=== PATIENT | male | born 1945 | race Caucasian/White ===

== ENCOUNTER 2017-10-15 07:25 | Observation (INO) | payer BC ==
[~2017-10-15] VITALS: Ht 182.9 cm; Wt 99.8 kg
[2017-10-15] VITALS (9 sets, daily range): BP systolic 113–159; BP diastolic 68–80
--- NOTE | ~2017-10-15 | H ---
[address] [address] HISTORY AND PHYSICAL Name: JOSSY DAVILA Room: [address] Lori Blue#: [id number] Admission: 10/15/17 Attend Phys: Wilberto Skinner MD Discharge: 10/16/17 Date of : 47 Report #: [id number] THIS REPORT FOR: //name// Please refer to the History and Physical performed in the physician's office. By: 0701Medical Records Staff XUAN /RIC
[2017-10-15 08:07] LABS: HEMATOCRIT 43.5 % (42.0-52.0); HEMOGLOBIN 14.7 gm/dL (14.0-18.0); MCH 30.9 pg (26.0-34.0); MCHC 33.8 g/dL (28.0-37.0); MCV 91.5 fL (80.0-100.0); MPV 9.6 fl. (7.2-11.1); RBC 4.76 mil/uL (4.50-6.00); RDW-CV 13.5 % (10.5-14.5); WBC 6.6 thou/uL (4.0-11.0)
[2017-10-15 08:16] LABS: ANION GAP 6 mmol/L (7-16); BUN 20 mg/dL (7-18); CALCIUM 8.8 mg/dL (8.5-10.1); CHLORIDE 96 mmol/L (98-107); CO2 27 mmol/L (21-32); CREATININE 1.4 mg/dL (0.6-1.3); GLUCOSE 95 mg/dL (70-99); POTASSIUM 3.8 mmol/L (3.5-5.1); SODIUM 129 mmol/L (136-145)
[2017-10-15 08:17] LABS: APTT 26.8 Seconds (25.0-31.3)
[2017-10-15 08:20] LABS: ALBUMIN 3.8 g/dL (3.4-5.0); ALKALINE PHOSPHATASE 76 U/L (46-116); CHOLESTEROL 223 mg/dL (<200); HDL CHOLESTEROL 54 mg/dL (>40); LDL CHOLESTEROL 146 mg/dL (<100); SGOT 24 U/L (15-37); SGPT 27 U/L (30-65); TC:HDL 4.1 Ratio (Not establshd); TOTAL PROTEIN 7.1 g/dL (6.4-8.2); TRIGLYCERIDE 118 mg/dL (<150); VLDL 24 mg/dL (<40)
[2017-10-15 08:21] LABS: SERUM ASSESSMENT Clear
[2017-10-15] MEDS ORDERED: HYDROCHLOROTHIA25 M2 PO (08:36)
[2017-10-15] MEDS ORDERED: LISINOPRIL10 MG PO (08:36)
[2017-10-15] MEDS ORDERED: ALLOPURINOL 10100 M1 PO (08:37)
[2017-10-15] MEDS ORDERED: ZOCOR20 MG PO (08:37)
[2017-10-15] MEDS ORDERED: CARDURA4 MG PO (08:37)
[2017-10-15] MEDS ORDERED: ASPIRIN81 M2 PO (08:38)
[2017-10-15] MEDS ORDERED: NEXIUM40 MG PO (08:38)
--- NOTE | 2017-10-15 16:04 | NUR ---
PATIENT ARRIVED FROM PACU PER BED THIS AFTERNOON. PATIENT IS ALERT AND ORIENTED X 4. HE DENIES CHEST PAIN AND SOA. CATH SITE HAS DRIED BLOOD UNDER THE PRESSURE DEVICE. SEE FLOW SHEET FOR ASSESSMENT. PATIENT ORIENTED TO ROOM AND PROCEDURES. PLACED ON TELE MONITOR. ADMISSION ASSESSMENT PERFORMED. IV FLUIDS RESTARTED. PATIENT GIVEN CALL LIGHT AND INSTRUCTED ON FALL PRECAUTIONS.
--- NOTE | 2017-10-15 16:30 | EKG ---
[place] [address] ELECTROCARDIOGRAM REPORT Name: JOSSY DAVILA Room: [address] ADM IN M.R.#: [id number] Admission: 10/15/17 Attend Phys: Wilberto Skinner MD Discharge: Date of : 47 Report #: [id number] THIS REPORT FOR: //name// [facility] Test Date: 2017-10-15 Test Time: 11:54:44 Pat Name: JOSSY DAVILA Department: Room: 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: : 1945 Requested By: Tomas Conner Order Number: [id number] Reading MD: Wilberto Skinner Measurements Intervals [place] Rate: 37 P: MS: QRS: -40 QRSD: 128 T: -2 QT: 512 QTc: 402 Interpretive Statements Junctional rhythm Nonspecific IVCD with LAD Borderline T abnormalities, inferior leads Baseline wander in lead(s) V5 No previous ECG available for comparison Electronically Signed On 10-15-2017 16:30:25 CDT by Wilberto Skinner [email or web address] <ELECTRONICALLY SIGNED> By: Wilberto Skinner MD, FAC 10/15/17 1630 1154 1154 Wilberto Skinner MD, [facility] /EPI
--- NOTE | 2017-10-15 16:30 | EKG ---
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1945 Requested By: Wilberto Skinner Order Number: [id number] Reading MD: Wilberto Skinner Measurements Intervals [place] Rate: 41 P: 264 [place]: 126 QRS: -31 QRSD: 126 T: 3 QT: 485 QTc: 401 Interpretive Statements Ectopic atrial bradycardia Nonspecific intraventricular conduction delay No previous ECG available for comparison Electronically Signed On 10-15-2017 16:30:05 CDT by Wilberto Skinner [email or web address] <ELECTRONICALLY SIGNED> By: Wilberto Skinner MD, [facility] 10/15/17 1630 D: [id number] Wilberto Skinner MD, FAC /EPI
[2017-10-16] VITALS: BP 132/62
--- NOTE | 2017-10-16 01:20 | NUR ---
PATIENT POST CATH YESTERDAY WITH RT WRIST CATH SITE WITH SOME SWELLING WHICH WAS PRESENT AT SHIFT CHANGE. DENIES COMPLAINTS OF PAIN OR DISCOMFORT. CONT. IVF AT 125 HOUR WITHOUT DIFFICULTIES. WILL CONT. TO MONITOR. SB ON MONITOR. WAS TOLD THIS IS BASELINE IN REPORT.
[2017-10-16 04:00] VITALS: BP 141/66
[2017-10-16 05:25] LABS: HEMOGLOBIN 13.7 gm/dL (14.0-18.0); MCH 31.1 pg (26.0-34.0); MCHC 34.2 g/dL (28.0-37.0); MCV 90.8 fL (80.0-100.0); RBC 4.4 mil/uL (4.50-6.00); RDW-CV 13.4 % (10.5-14.5); WBC 7.7 thou/uL (4.0-11.0)
[2017-10-16 05:53] LABS: ALBUMIN 3.3 g/dL (3.4-5.0); ALKALINE PHOSPHATASE 71 U/L (46-116); ANION GAP 8 mmol/L (7-16); BUN 19 mg/dL (7-18); CALCIUM 8.2 mg/dL (8.5-10.1); CHLORIDE 106 mmol/L (98-107); CO2 27 mmol/L (21-32); CREATININE 1.4 mg/dL (0.6-1.3); GLUCOSE 81 mg/dL (70-99); POTASSIUM 4.6 mmol/L (3.5-5.1); SGOT 23 U/L (15-37); SGPT 24 U/L (30-65); TOTAL BILIRUBIN 1.3 mg/dL (<0.1-1.0); TOTAL PROTEIN 5.8 g/dL (6.4-8.2); TROPONIN-I LEVEL <0.06 ng/mL (<0.06)
[2017-10-16 05:55] LABS: SODIUM 141 mmol/L (136-145)
--- NOTE | 2017-10-16 06:52 | NUR ---
PATIENT HAS NS TO RUN AT [facility], PATIENT REQUESTED TO BE OFF THE FLUIDS IT WAS RESTRICTING HIS BRP.
[2017-10-16 08:00] VITALS: BP 138/69
[2017-10-16 10:12] VITALS: BP 141/74
[2017-10-16] MEDS ORDERED: BRILINTA90 MG PO (10:16)
[2017-10-16] MEDS ORDERED: LIPITOR40 MG PO (10:19)
[2017-10-16] MEDS ORDERED: NITROGLYCERIN0.4 MG SUBLING (10:20)
[2017-10-16 10:21] VITALS: BP 141/74
--- NOTE | 2017-10-16 11:04 | NUR ---
ASSUMED CARE OF PT THIS AM ASSESSED AND DOCUMENTED. SEE CHART. PT D/C'D TO HOME. EDUCATION GIVEN RE FOLLOW-UPS, MEDICATION, AND DRS ORDERS. SCRIPTS GIVEN. IV AND CARDIAC MONITER D/C'D. ALL BELONGINGS PACKED UP AND LEFT WITH PT ACCOMPANIED BY STAFF AND PTS BROTHER.
--- NOTE | 2017-10-16 15:09 | EKG ---
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1945 Requested By: Tomas Conner Order Number: [id number] Cinthia MD: Tomas Conner Measurements Intervals [place] Rate: 49 P: 40 [place]: 165 QRS: -55 QRSD: 125 T: 14 QT: 451 QTc: 408 Interpretive Statements Sinus bradycardia Nonspecific IVCD with LAD Compared to ECG 10/15/2017 11:54:44 Junctional rhythm no longer present T-wave abnormality no longer present Electronically Signed On 10-16-2017 15:09:10 CDT by Tomas Conner [email or web address] <ELECTRONICALLY SIGNED> By: Tomas Conner MD, [facility] 10/16/17 1509 0832 0832 Tomas Conner MD, [facility] /EPI
--- NOTE | 2017-10-16 16:11 | CARD ---
[address] [address] CARDIAC CATH REPORT Name: JOSSY DAVILA Room: [address] Lori Blue#: [id number] Admission: 10/15/17 Attend Phys: Wilberto Skinner MD Discharge: 10/16/17 Date of : 47 Report #: [id number] THIS REPORT FOR: //name// APPROVED REPORT Study performed: 10/15/2017 08:44:39 Patient Details Patient Status: Out-Patient Room #: The patient is a 72 year-old male Event Personnel Wilberto Skinner Principal Technical Writer, Viviana Baker RN RN, Wilbur Suárez, Lillie Maddox Holkins, John Principal Technical Writer Procedures Performed That catheterization left ventriculography selective coronary artery and percutaneous coronary intervention with deployment of drug-eluting stent in the mid right coronary artery Indication Positive stress test Risk Factors Hypercholesterolemia, Hypertension Admission/Lab Medications/Medications given during procedure Aspirin, Platelet Aff. Inhib., Angiomax bolus and infusion Procedure Narrative The patient was brought electively to the Cardiac Catheterization Laboratory and was prepped and draped in a sterile manner. The right wrist was infiltrated with 1% Lidocaine subcutaneous anesthesia. A Slender Glidesheath sheath was inserted into the . Coronary angiography was performed using coronary diagnostic catheters. The right coronary system was accessed and visualized with a AR1 Mod 6fr catheter. The left coronary system was accessed and visualized with a [place] 4.0 6fr catheter. The left ventricle was accessed and visualized with a PC: Angled Pig 5fr catheter. Left ventricular/Aortic Valve gradient assessed via catheter pullback. Closure device was deployed with a Fr Vasc-Band Lng 27cm. The patient tolerated the procedure well and there were no complications associated with the procedure. [place] [address] CARDIAC CATH REPORT Name: JOSSY DAVILA Room: [address] Lori Blue#: [id number] Admission: 10/15/17 Attend Phys: Wilberto Skinner MD Discharge: 10/16/17 Date of : 47 Report #: [id number] Intraoperative Conscious Sedation Sedation start time: 935 Case end Time: 105 Fentanyl 50 mcg Versed 4 mg Fluoro Time: 25.1 minutes Dose: DAP 992405 cGycm2 2768 mGy Contrast Type and Amount: Visipaque 330 ml Coronary Angiography The patient's coronary anatomy is right dominant. Diagnostic Cath Left Main 10% distal narrowing LAD 30% mid vessel stenosis Circumflex 30% mid vessel narrowing Right Coronary 80 Percent mid right coronary narrowing with 40% distal right coronary narrowing Left Ventriculography The left ventricle is normal in size with normal contractility. The left ventricular ejection fraction is estimated to be 65%. Left ventricular wall motion abnormalities are not present. There is no mitral insufficiency. Hemodynamics The aortic pressure is 131/62 mmHg with a mean of 77 mmHg. The left ventricular pressure is 128/3 mmHg with a mean of mmHg. The left ventricular end diastolic pressure is 8 mmHg. There was no gradient across the aortic valve upon pullback. PCI Technique Lesion Anticoagulation was achieved with Angiomax. Patient was preloaded with Angiomax IV 14 ml. Percutaneous coronary intervention was performed on the mid right coronary artery. The lesion stenosis prior to intervention was 80% with EDUARDO 3 flow. A 6F AR 2 Guide Catheter was used to engage the ostium. A IG: BMW 190cm Interventional Guidewire was used to cross the lesion. BALLOON DILATION A Balloon catheter Trek RX 2.5 X 12 was inserted and inflated up to 10.00atm for 13seconds. STENT DEPLOYMENT A stent Resolute RX 2.25X14 was inserted and inflated up to 10.00atm [place] [address] CARDIAC CATH REPORT Name: JOSSY DAVILA [address] [id number] Admission: 10/15/17 Attend Phys: Wilberto Skinner MD Discharge: 10/16/17 Date of : 47 Report #: [id number] for 15seconds. Additional Inflation: 14.00atm for 15seconds. Additional Inflation: 16.00atm for 14seconds. 18 rakel for 14 sec Final angiography reveals 10 % stenosis with EDUARDO 3 flow. BALLOON DILATION 18 rakel for 14 sec Conclusion #1 significant coronary artery disease characterized by the following: A 10% distal left main coronary artery narrowing B 30% mid LAD stenosis C 30% mid circumflex narrowing, this being a nondominant vessel D dominant right coronary artery with 80% mid vessel narrowing and 30% distal narrowing #2 normal left ventricular systolic function, estimated ejection fraction being 65% #3 normal left-sided hemodynamics study #4 successful percutaneous coronary intervention with deployment of a drug-eluting stent at the site of 80% tubular mid right coronary stenosis with 10% residual narrowing and EDUARDO 3 flow to the distal vessel Recommendations Cardiac Risk Reduction Program Aggressive Medical Therapy Medications Administered Aspirin (any) Ticagrelor Diagnostic Cath Approved by: Wilberto Skinner MD Date/Time: 10/16/17 at 1610 hrs. <ELECTRONICALLY SIGNED> By: Tomas Conner MD, FACC 10/16/17 161 10 10Jojose Conner MD, FACC /INF
--- NOTE | 2017-10-17 15:02 | D ---
[address] [address] DISCHARGE SUMMARY Name: JOSSY DAVILA Room: [address] Lori Blue#: [id number] Admission: 10/15/17 Attend Phys: Wilberto Skinner MD Discharge: 10/16/17 Date of : 47 Report #: [id number] THIS REPORT FOR: //name// CC: Juani Skinner MD [facility] DATE OF SERVICE: 10/16/2017 FINAL DISCHARGE DIAGNOSES: 1. Abnormal nuclear stress test with inducible inferior ischemia. 2. Coronary artery disease. 3. Status post percutaneous transluminal coronary angioplasty with stenting of the mid right coronary artery. 4. Hypercholesterolemia. 5. Hypertension. 6. Gastroesophageal reflux disease. PROCEDURES: On 10/15/2017 - left heart catheterization, left ventriculography, selective coronary arteriography and percutaneous coronary intervention with deployment of a drug-eluting stent at the site of 80% tubular mid right coronary stenosis. HOSPITAL COURSE: The patient is a very pleasant 72-year-old male with risk factors for coronary artery disease and recently abnormal nuclear stress test with inducible inferior ischemia. Given this data, Dr. Skinner performed cardiac catheterization on 10/15/2017, which revealed tubular 80% mid right coronary stenosis, with no hemodynamically significant stenosis in the other major coronary arteries. I deployed one drug-eluting stent in the mid right coronary artery, 2.5 x 14 mm Integrity Resolute drug-eluting stent, deployed to 18 atmospheres with 10% residual narrowing following stent deployment and EDUARDO 3 flow of the distal vessel. The patient did well post-procedurally and ambulated in the hallways without difficulty. There was good hemostasis at the right radial site of catheterization. LABORATORY DATA: On 10/16/2017, revealed sodium 141, potassium 4.6, BUN 19 and creatinine 1.4. Hemoglobin 13.7, white blood cell count 7700 with 151,000 platelets. Cholesterol 223, triglycerides 118, HDL 54 and LDL 146 mg percent. DISCHARGE MEDICATIONS: The patient was discharged to home on the following medications: Allopurinol 100 mg daily, aspirin 81 mg daily, doxazosin 8 mg daily, Nexium 20 mg daily, hydrochlorothiazide 25 mg daily, lisinopril 10 mg daily, atorvastatin 40 mg at bedtime and ticagrelor [address] [place] [address] DISCHARGE SUMMARY Name: JOSSY DAVILA Room: [address] Lori Blue#: [id number] Admission: 10/15/17 Attend Phys: Wilberto Skinner MD Discharge: 10/16/17 Date of : 47 Report #: [id number] He is discharged to home in stable condition with followup with our nurse practitioner, Rachel Kruse, on 10/29/2017 at 1400 hours. <ELECTRONICALLY SIGNED> By: Tomas Conner MD, [facility] 10/17/17 1502 0931 1040Jojose Conner MD, [facility] /nt
== END 2017-10-16 10:30 | disposition home or self-care (01) ==
LOC: M.CL 07:25 → M.TBA-CV 11:04 → M.2W 11:04
PROVIDERS: Internal Medicine; ADMIT Internal Medicine Cardiovascular Disease
DX: I25.118 Atherosclerotic heart disease of native coronary artery with other forms of angina pectoris (principal); I21.19 ST elevation (STEMI) myocardial infarction involving other coronary artery of inferior wall; E78.00 Pure hypercholesterolemia, unspecified; I10 Essential (primary) hypertension; K21.9 Gastro-esophageal reflux disease without esophagitis; R94.39 Abnormal result of other cardiovascular function study; Z82.49 Family history of ischemic heart disease and other diseases of the circulatory system

== ENCOUNTER → 2019-11-23 | Outpatient (CLI) | payer BC ==
[~2019-11-23] MED LIST: ALLOPURINOL 10100 M1 PO; ASPIRIN81 M2 PO; BRILINTA90 MG PO; CARDURA4 MG PO; HYDROCHLOROTHIA25 M2 PO; LIPITOR40 MG PO; LISINOPRIL10 MG PO; NEXIUM40 MG PO; NITROGLYCERIN0.4 MG SUBLING; ZOCOR20 MG PO
--- NOTE | 2019-11-23 17:02 | CARDNUC ---
[place] [address] CARDIAC NUCLEAR IMAGING REPORT Name: GIOVANNIJOSSY Fareed Room: [facility]#: [id number] Admission: 11/23/19 Attend Phys: Gabriel Hernandez, Discharge: Date of : 47 Date of Service: 11/23/19 1700 Report #: [id number] THIS REPORT FOR: cc: Juani Mcclelland MD, Cora A. MD Liston, Michael J. MD [facility] ~ APPROVED REPORT Imaging Protocol: Stress Tc-99m/Rest Tc-99m 1 day Study performed: 11/23/2019 07:45:00 Indication: CAD s/p PCI, Bradycardia. Patient Location: Out-Patient Stress Tech: Mary Velasquez Stress Nurse: Maria T Beth RN Ht: 6 ft 0 in Wt: 198 lbs BSA: 2.12 m2 BMI: 26.85 Medical History Medical History: CAD s/p stent, Carotid artery disease, HTN, Hyperlipidemia, Bradycardia, Right carotid stenosis. Medications: ASA 81 Mg, Cardura, HCTZ, Lisinopril, Atorvastatin, NTG, Plavix. Allergies: Lovastatin? Cardiac Risk Factors: Age, FHX of CAD, HTN, Hyperlipidemia, Bradycardia, Carotid stenosis. Previous Cardiac Procedures: PCI, Carotid endarterectomy. Pretest Chest Pain Characteristics: No chest pain Exercise History: Indeterminate Physical Disabilities: Unable to walk on incline or increased speed, arthritis. Meds Held (24 hrs): NTG. Resting Data Rest SPECT myocardial perfusion imaging was performed in supine position 30 minutes following the intravenous injection of 9.2 mCi of Tc-99m Sestamibi. Time of rest injection: 20 The images were gated to evaluate regional wall motion and calculate left ventricular ejection fraction. Administration Route: IV Administration Site: [place] [address] CARDIAC NUCLEAR IMAGING REPORT Name: JOSSY DAVILA Room: [facility] EDILBERTO Blue#: [id number] Admission: 11/23/19 Attend Phys: Gabriel Hernandez, Discharge: Date of : 47 Date of Service: 11/23/19 1700 Report #: [id number] Pharmacologic Stress Pharmacologic stress test was performed by injecting Regadenoson 0.4 mg IV push over 10-15 seconds immediately followed by the intravenous injection of 31.9 mCi of Tc-99m Sestamibi. Time of stress injection: 20 Administration Route: IV Administration Site: Right Hand Heart Rate at time of stress injection: 100 bpm. Gated Stress SPECT was performed 40 minutes after stress injection. The images were gated to evaluate regional wall motion and calculate left ventricular ejection fraction. Prone imaging was performed. Stress Test Details Stress Test: Pharmacologic stress was paired with low level exercise. Reason for pharmacologic stress test: Unable to walk on incline with increased speed, arthritis.. HR Max Heart Rate (APMHR): 147 bpm Resting HR: 46 bpm Target HR (85% APMHR): 124 bpm Max HR Achieved: 100 bpm % of APMHR: 68 Recovery HR: 67 bpm BP Resting BP: 153/80 mmHg Max BP: 179/92 mmHg Recovery BP: 141/79 mmHg ECG Resting ECG: Sinus Bradycardia Stress ECG: Sinus Rhythm ST Change: None Arrhythmia: APC's and, VPC's Recovery ECG: Sinus Rhythm Recovery ST Change: None Recovery Arrhythmia: APC's and, VPC's Clinical Reason for Termination: Completed protocol Stress Symptoms: None voiced. Exercise duration: 4 min 00 sec Exercise capacity: 2.30 METs The patient tolerated Lexiscan infusion without significant [place] [address] CARDIAC NUCLEAR IMAGING REPORT Name: JOSSY DAVILA Room: [facility]#: [id number] Admission: 11/23/19 Attend Phys: Gabriel Hernandez, Discharge: Date of : 47 Date of Service: 11/23/19 1700 Report #: [id number] Nurse Comments A 74 year old male presented for a walking Lexiscan r/t Bradycardia and s/p PCI. Test well tolerated. Recovery unremarkable with PO caffeine. Patient was escorted by staff to Nuclear Medicine for imaging. Patient was stable and stated he felt good at that time. Stress ECG Conclusion The baseline EKG shows sinus bradycardia without significant ST segment or T wave abnormality. EKGs obtained during and post Lexiscan infusion show sinus rhythm with premature atrial and premature ventricular contractions. There were no significant ST segment changes noted when compared to baseline. Study Quality Study: Good Artifact: Mild Diaphragmatic artifact Study Data At rest, the left ventricular ejection fraction was 49%.. Post stress, the left ventricular ejection was 49%.. TID = 1.01. Perfusion Perfusion studies show a small in size moderate in intensity fixed defect involving the basal portion of the inferior wall that appears more pronounced on rest than stress images. Review of the raw data suggest diaphragmatic attenuation artifact in this region. No other significant fixed or reversible defects were identified. Wall Motion Gated images show mild global hypokinesis without obvious focal wall motion abnormality. Nuclear Conclusion ECG Findings: negative for ischemia Clinical Findings: negative for ischemia Nuclear Findings: negative for ischemia Exercise Capacity: not assessed Left Ventricular Function: abnormal Perfusion images show a defect of the basal inferior wall that is likely diaphragmatic attenuation artifact. No evidence of inducible ischemia was identified. Global LV systolic function appears to be mildly decreased without obvious focal wall motion abnormality. This is not [place] [address] CARDIAC NUCLEAR IMAGING REPORT Name: JOSSY DAVILA Room: [facility] MACKENZIE Mirza#: [id number] Admission: 11/23/19 Attend Phys: Gabriel Hernandez, Discharge: Date of : 47 Date of Service: 11/23/19 1700 Report #: [id number] <Conclusion> The baseline EKG shows sinus bradycardia without significant ST segment or T wave abnormality. EKGs obtained during and post Lexiscan infusion show sinus rhythm with premature atrial and premature ventricular contractions. There were no significant ST segment changes noted when compared to baseline. <ELECTRONICALLY SIGNED> By: Gabriel Hernandez MD, [facility] 11/23/191699 99 99 Gabriel Hernandez MD, FAC /INF
== END ==
LOC: M.NUC 06-29 12:04
DX: I25.10 Atherosclerotic heart disease of native coronary artery without angina pectoris (principal)